=== PATIENT | male | born 1945 | race Caucasian/White ===

== ENCOUNTER 2017-02-23 17:25 | Emergency (ER) | payer MEDICARE, BC | END 2017-02-23 22:32 | disposition other institution (70) | LOC: ER 17:25 | DX: J44.0 Chronic obstructive pulmonary disease with (acute) lower respiratory infection (principal); J18.9 Pneumonia, unspecified organism; Z99.81 Dependence on supplemental oxygen; E11.9 Type 2 diabetes mellitus without complications; I10 Essential (primary) hypertension; Z95.810 Presence of automatic (implantable) cardiac defibrillator | CPT/HCPCS: 99284; 99285-25 ==

== ENCOUNTER 2017-02-23 17:25 | Inpatient (IN) | payer MEDICARE, BC ==
[~2017-02-23] VITALS: Ht 177.8 cm; Wt 86.0 kg
[2017-02-23 17:51] LABS: ARTERIAL BLD GAS O2 SATURATION 87.5 % (94-98); ARTERIAL BLOOD GAS BASE EXCESS 0.1 mmol/L (-2.0-3.0); ARTERIAL BLOOD GAS HCO3 23.3 mmol/L (22-26); ARTERIAL BLOOD GAS PCO2 34.3 mmHg (35-48); ARTERIAL BLOOD GAS pH 7.45 (7.35-7.45)
[2017-02-23 17:52] LABS: BASO % 0.2 % (0.2-1.2); EOS # 0.1 10_X3_uL (0.0-0.5); EOS % 0.4 % (0.8-7.0); GRAN # 11.5 10_X3_uL (1.8-5.4); GRAN % 86.1 % (34.0-67.9); HEMATOCRIT 34.6 % (40-51); HEMOGLOBIN 11.2 g/dL (13.7-17.5); LYMPH # 0.6 10_X3_uL (1.3-3.6); LYMPH % 4.1 % (21.8-53.1); MEAN CORPUSCULAR HEMOGLOBIN 27.3 pg (27.0-33.0); MEAN CORPUSCULAR HGB CONC 32.4 g/dL (32.0-36.0); MEAN CORPUSCULAR VOLUME 84.2 fL (79-92); MEAN PLATELET VOLUME 10.2 fl (7.5-11.5); MONO # 1.2 10_X3_uL (0.3-0.8); MONO % 9.2 % (5.3-12.2); PLATELET COUNT 203 x10_3/uL (163-337); RED BLOOD COUNT 4.11 x10_6/uL (4.6-6.1); RED CELL DISTRIBUTION WIDTH 13.7 % (11.6-14.4); WHITE BLOOD COUNT 13.4 x10_3/uL (4.2-9.1)
[2017-02-23 18:03] LABS: ALBUMIN 4.3 gm/dL (3.4-5.0); BILIRUBIN,TOTAL 1.13 mg/dL (0.0-1.0); CALCIUM 8.5 mg/dL (8.7-10.7); CREATININE 1.6 mg/dL (0.6-1.3); POTASSIUM 4.1 mmol/L (3.5-5.1)
[2017-02-24 06:58] LABS: GRAN # 7.9 10_X3_uL (1.8-5.4); GRAN % 95.4 % (34.0-67.9); HEMOGLOBIN 9.8 g/dL (13.7-17.5); LYMPH # 0.3 10_X3_uL (1.3-3.6); LYMPH % 3.3 % (21.8-53.1); MEAN CORPUSCULAR HEMOGLOBIN 27.1 pg (27.0-33.0); MEAN CORPUSCULAR HGB CONC 32.7 g/dL (32.0-36.0); MEAN CORPUSCULAR VOLUME 83.1 fL (79-92); MEAN PLATELET VOLUME 10.4 fl (7.5-11.5); MONO # 0.1 10_X3_uL (0.3-0.8); MONO % 1.3 % (5.3-12.2); PLATELET COUNT 163 x10_3/uL (163-337); RED BLOOD COUNT 3.61 x10_6/uL (4.6-6.1); RED CELL DISTRIBUTION WIDTH 13.6 % (11.6-14.4); WHITE BLOOD COUNT 8.2 x10_3/uL (4.2-9.1)
[2017-02-25 07:42] LABS: HEMATOCRIT 27.8 % (40-51); HEMOGLOBIN 9.1 g/dL (13.7-17.5); MEAN CORPUSCULAR HEMOGLOBIN 27.2 pg (27.0-33.0); MEAN CORPUSCULAR HGB CONC 32.7 g/dL (32.0-36.0); MEAN CORPUSCULAR VOLUME 83.2 fL (79-92); MEAN PLATELET VOLUME 10.5 fl (7.5-11.5); RED BLOOD COUNT 3.34 x10_6/uL (4.6-6.1); RED CELL DISTRIBUTION WIDTH 13.6 % (11.6-14.4); WHITE BLOOD COUNT 11.2 x10_3/uL (4.2-9.1)
[2017-02-25 07:49] LABS: ALBUMIN 3.5 gm/dL (3.4-5.0); BILIRUBIN,TOTAL 0.56 mg/dL (0.0-1.0); CALCIUM 8.5 mg/dL (8.7-10.7); CREATININE 1.5 mg/dL (0.6-1.3); POTASSIUM 4.1 mmol/L (3.5-5.1); TOTAL PROTEIN 5.8 gm/dL (6.4-8.2)
[2017-02-26 06:36] LABS: GRAN # 8.9 10_X3_uL (1.8-5.4); GRAN % 94.6 % (34.0-67.9); HEMATOCRIT 27.9 % (40-51); LYMPH # 0.3 10_X3_uL (1.3-3.6); LYMPH % 3.2 % (21.8-53.1); MEAN CORPUSCULAR HEMOGLOBIN 26.9 pg (27.0-33.0); MEAN CORPUSCULAR HGB CONC 32.3 g/dL (32.0-36.0); MEAN CORPUSCULAR VOLUME 83.3 fL (79-92); MEAN PLATELET VOLUME 10.2 fl (7.5-11.5); MONO # 0.2 10_X3_uL (0.3-0.8); MONO % 2.2 % (5.3-12.2); PLATELET COUNT 207 x10_3/uL (163-337); RED BLOOD COUNT 3.35 x10_6/uL (4.6-6.1); RED CELL DISTRIBUTION WIDTH 13.5 % (11.6-14.4); WHITE BLOOD COUNT 9.4 x10_3/uL (4.2-9.1)
[2017-02-26 07:01] LABS: ALBUMIN 3.5 gm/dL (3.4-5.0); BILIRUBIN,TOTAL 0.41 mg/dL (0.0-1.0); CALCIUM 8.1 mg/dL (8.7-10.7); CREATININE 1.6 mg/dL (0.6-1.3); TOTAL PROTEIN 5.7 gm/dL (6.4-8.2)
[2017-02-27 08:04] LABS: GRAN # 8.2 10_X3_uL (1.8-5.4); GRAN % 93.4 % (34.0-67.9); HEMATOCRIT 31.1 % (40-51); HEMOGLOBIN 10.1 g/dL (13.7-17.5); LYMPH # 0.3 10_X3_uL (1.3-3.6); LYMPH % 3.7 % (21.8-53.1); MEAN CORPUSCULAR HGB CONC 32.5 g/dL (32.0-36.0); MEAN CORPUSCULAR VOLUME 83.2 fL (79-92); MEAN PLATELET VOLUME 9.7 fl (7.5-11.5); MONO # 0.3 10_X3_uL (0.3-0.8); MONO % 2.9 % (5.3-12.2); PLATELET COUNT 237 x10_3/uL (163-337); RED BLOOD COUNT 3.74 x10_6/uL (4.6-6.1); RED CELL DISTRIBUTION WIDTH 13.6 % (11.6-14.4); WHITE BLOOD COUNT 8.8 x10_3/uL (4.2-9.1)
[2017-02-27 08:31] LABS: ALBUMIN 4.2 gm/dL (3.4-5.0); BILIRUBIN,TOTAL 0.52 mg/dL (0.0-1.0); CALCIUM 8.3 mg/dL (8.7-10.7); CREATININE 1.6 mg/dL (0.6-1.3); POTASSIUM 3.7 mmol/L (3.5-5.1); TOTAL PROTEIN 6.4 gm/dL (6.4-8.2)
== END 2017-02-27 10:01 | disposition home or self-care (01) | DRG 871 ==
LOC: ER 17:25 → MS 22:32 → UNDODEPER 02-25 22:48 → MS 02-27 10:01
PROVIDERS: Emergency Medicine; Family Medicine; ADMIT Family Medicine
DX: A41.9 Sepsis, unspecified organism (principal); J96.01 Acute respiratory failure with hypoxia; J18.9 Pneumonia, unspecified organism; J44.0 Chronic obstructive pulmonary disease with (acute) lower respiratory infection; J44.1 Chronic obstructive pulmonary disease with (acute) exacerbation; I13.0 Hypertensive heart and chronic kidney disease with heart failure and stage 1 through stage 4 chronic kidney disease, or unspecified chronic kidney disease; E11.22 Type 2 diabetes mellitus with diabetic chronic kidney disease; I50.9 Heart failure, unspecified; I65.29 Occlusion and stenosis of unspecified carotid artery; N18.2 Chronic kidney disease, stage 2 (mild); I25.2 Old myocardial infarction; I25.10 Atherosclerotic heart disease of native coronary artery without angina pectoris; K21.9 Gastro-esophageal reflux disease without esophagitis; Z98.890 Other specified postprocedural states; B96.89 Other specified bacterial agents as the cause of diseases classified elsewhere; Z95.810 Presence of automatic (implantable) cardiac defibrillator; Z79.899 Other long term (current) drug therapy
CPT/HCPCS: 36415; 36600; 71010; 71020; 80053; 80061; 82550; 82553; 82803; 82962; 83036; 83605; 83735; 85025; 86738; 87040; 87070; 87205; 87400; 87449; 93005; 94640; 94664; 96365; 96366; 96375; 99070; 99284; 99285-25; J2930

== ENCOUNTER 2017-03-09 01:26 | Emergency (ER) | payer MEDICARE, BC ==
[2017-03-09 02:12] LABS: BASO % 0.1 % (0.2-1.2); EOS # 0.2 10_X3_uL (0.0-0.5); EOS % 1.9 % (0.8-7.0); GRAN # 10.1 10_X3_uL (1.8-5.4); GRAN % 84.3 % (34.0-67.9); HEMATOCRIT 32.5 % (40-51); HEMOGLOBIN 10.4 g/dL (13.7-17.5); LYMPH # 0.7 10_X3_uL (1.3-3.6); LYMPH % 5.6 % (21.8-53.1); MEAN CORPUSCULAR HEMOGLOBIN 27.1 pg (27.0-33.0); MEAN CORPUSCULAR VOLUME 84.6 fL (79-92); MEAN PLATELET VOLUME 9.3 fl (7.5-11.5); MONO % 8.1 % (5.3-12.2); PLATELET COUNT 127 x10_3/uL (163-337); RED BLOOD COUNT 3.84 x10_6/uL (4.6-6.1); RED CELL DISTRIBUTION WIDTH 14.4 % (11.6-14.4); WHITE BLOOD COUNT 11.9 x10_3/uL (4.2-9.1)
[2017-03-09 02:21] LABS: ARTERIAL BLD GAS O2 SATURATION 95.7 % (94-98); ARTERIAL BLOOD GAS pH 7.41 (7.35-7.45)
[2017-03-09 02:23] LABS: ALBUMIN 3.9 gm/dL (3.4-5.0); BILIRUBIN,TOTAL 0.37 mg/dL (0.0-1.0); CALCIUM 8.2 mg/dL (8.7-10.7); CREATININE 1.7 mg/dL (0.6-1.3); POTASSIUM 4.5 mmol/L (3.5-5.1); TOTAL PROTEIN 6.1 gm/dL (6.4-8.2)
== END 2017-03-09 03:13 | disposition home or self-care (01) ==
LOC: ER 01:26
PROVIDERS: General Practice
DX: J44.9 Chronic obstructive pulmonary disease, unspecified (principal); J84.9 Interstitial pulmonary disease, unspecified; J32.9 Chronic sinusitis, unspecified; N28.9 Disorder of kidney and ureter, unspecified; E11.65 Type 2 diabetes mellitus with hyperglycemia; I10 Essential (primary) hypertension; K21.9 Gastro-esophageal reflux disease without esophagitis; I25.2 Old myocardial infarction; I25.10 Atherosclerotic heart disease of native coronary artery without angina pectoris; E11.40 Type 2 diabetes mellitus with diabetic neuropathy, unspecified; R12 Heartburn; J18.9 Pneumonia, unspecified organism; Z79.899 Other long term (current) drug therapy; Z79.01 Long term (current) use of anticoagulants
CPT/HCPCS: 36415; 36600; 71010; 80053; 82803; 82962; 83605; 85025; 87040; 93005; 94664; 99283-25; 99284

== ENCOUNTER 2017-03-15 15:46 | Emergency (ER) | payer MEDICARE, BC | END 2017-03-15 17:13 | disposition home or self-care (01) | LOC: ER 15:46 | DX: J43.9 Emphysema, unspecified (principal); J32.9 Chronic sinusitis, unspecified; R05 Cough; E11.9 Type 2 diabetes mellitus without complications; I10 Essential (primary) hypertension; I25.10 Atherosclerotic heart disease of native coronary artery without angina pectoris; R53.1 Weakness; Z79.899 Other long term (current) drug therapy; Z79.4 Long term (current) use of insulin; Z79.02 Long term (current) use of antithrombotics/antiplatelets | CPT/HCPCS: 70486; 71020; 93005; 99284; 99285-25 ==

== ENCOUNTER 2017-03-17 18:44 | Emergency (ER) | payer MEDICARE, BC | END 2017-03-17 20:07 | disposition home or self-care (01) | LOC: ER 18:44 | DX: R05 Cough (principal); J44.9 Chronic obstructive pulmonary disease, unspecified; E78.00 Pure hypercholesterolemia, unspecified; E11.22 Type 2 diabetes mellitus with diabetic chronic kidney disease; I13.0 Hypertensive heart and chronic kidney disease with heart failure and stage 1 through stage 4 chronic kidney disease, or unspecified chronic kidney disease; N18.9 Chronic kidney disease, unspecified; Z79.899 Other long term (current) drug therapy | CPT/HCPCS: 99282; 99283 ==